=== PATIENT | female | born 1985 | race Caucasian/White ===

== ENCOUNTER 2017-03-16 10:50 | Inpatient (IN) | payer MEDICAID ==
[~2017-03-16] VITALS: Ht 160 cm; Wt 76.3 kg
[2017-03-16] MEDS ORDERED: PREN-93 PO (11:09)
[2017-03-16 11:10] VITALS: BP 118/77; PULSE 83; RESP 18; Ht 160 cm; Wt 76.3 kg
--- NOTE | 2017-03-16 12:55 | PREOPHP ---
DATE OF ADMISSION: 03/16/2017 HISTORY OF PRESENT ILLNESS: Ms. Christina Lara is a 31-year-old 1, para 0, EDC 03/23/2017, in trauterine at 39 weeks gestational age, presented to triage complaining of vaginal dischar ge. Her care took place at [facility]. She denies any vaginal bleeding. Sh e denies any contractions, nausea, vomiting, shortness of breath, or visual changes. PAST MEDICAL HISTORY: None. MEDICATIONS: vitamins. PAST SURGICAL HISTORY: None. OBSTETRIC HISTORY: Primigravid. GYNECOLOGIC HISTORY: 11, regular 3 to 4 days. Denies any sexually transmitted diseases. Sexually active with 1 partner. SOCIAL HISTORY: Denies any smoking, drugs or alcohol. FAMILY HISTORY: None. REVIEW OF SYSTEMS: All within normal except history of present illness. PHYSICAL EXAMINATION: HEENT: Within normal. LUNGS: CTA bilateral. CARDIOVASCULAR: S1, S2, regular rhythm. ABDOMEN: Gravid, nontender. Negative CVA bilateral. EXTREMITIES: Negative. No calf tenderness. VAGINAL EXAMINATION: Long, closed. No pooling, positive white cottage cheese discharge, suspected with candidiasis. heart tracing category 1, toco irregular contractions. ASSESSMENT: A 31-year-old 1, para 0, intrauterine at 39 weeks gestational age, ru le out rupture of membranes. PLAN: A biophysical profile with MARINE. ROM plus test. Consider admission if findings are positive for rupture of membrane. Dictated By: TYSON SILVESTRE/DAGO Conf#: [id number] DID#: [id number]
--- NOTE | 2017-03-16 15:23 | RADRPT ---
PROCEDURE: US biophysical profile. CLINICAL INDICATION: Ruptured membranes. TECHNIQUE: Multiple sonographic images of the uterus were obtained. The images were revi ewed on a PACS workstation. COMPARISON: No prior studies are available for comparison. FINDINGS: There is a single live intrauterine gestation. heart rate is 137 beats per minute. The position is cephalic. The placenta is posterior grade II with no abruption or previa. The MARINE is 14.2 cm. (Normal = 5-20 cm.) Breathing Movement: 2 Gross Body Movement: 2 Tone: 2 Qualitative Amniotic Fluid Volume: 2 TOTAL: 8 IMPRESSION: 1. The biophysical score is 8/8. RPTAT: QQ .Diego Erickson MD, Date Time Electronically viewed and signed by .Deigo Erickson MD, on 03/16/2017 15:22 .R/
[2017-03-16] MEDS ORDERED: LIDOCAINE 1% (MPF) 30 ML INJ INJ PRN (15:30)
[2017-03-16] MEDS ORDERED: MISOPROSTOL 200 MCG TAB PR PRN (15:30)
[2017-03-16] MEDS ORDERED: OXYTOCIN 30 UNITS/LR 500 ML IV PRN (15:30)
[2017-03-16] MEDS ORDERED: BUTORPHANOL 2 MG INJ IV PRN ×2 (15:30)
[2017-03-16] MEDS ORDERED: OXYTOCIN 30 UNITS/LR 500 ML IV SCH ×2 (15:30)
[2017-03-16] MEDS ORDERED: METHYLERGONOVINE 0.2 MG INJ IM PRN (15:30)
[2017-03-16] MEDS ORDERED: CARBOPROST 250 MCG INJ IM PRN (15:30)
[2017-03-16] MEDS ORDERED: LACTATED RINGER'S 1,000 ML IV PRN (15:30)
[2017-03-16] MEDS: LACTATED RINGER'S 1,000 ML IV SCH ×2 (15:34→19:50)
[2017-03-16 15:35] LABS: BASOPHILS % 0.3 % (0.0-2.0); EOSINOPHILS % 0.3 % (0.0-7.0); HEMATOCRIT 34.7 % (37.0-47.0); LYMPHOCYTES # 1.5 10^3/ul (0.8-2.9); LYMPHOCYTES % 14.6 % (15.0-51.0); MEAN CORPUSCULAR HEMOGLOBIN 32.3 pg (29.0-33.0); MEAN CORPUSCULAR HGB CONC 34.6 g/dl (32.0-37.0); MEAN CORPUSCULAR VOLUME 93.3 fl (82.0-101.0); MEAN PLATELET VOLUME 12.5 fl (7.4-10.4); MONOCYTE # 0.5 10^3/ul (0.3-0.9); MONOCYTES % 4.6 % (0.0-11.0); NEUTROPHIL # 8.3 10^3/ul (1.6-7.5); NEUTROPHILS % 79.9 % (39.0-77.0); PLATELET COUNT 210 10^3/UL (140-415); RED BLOOD COUNT 3.72 10^6/ul (4.20-5.40); RED CELL DISTRIBUTION WIDTH 13.2 % (11.5-14.5); WHITE BLOOD COUNT 10.4 10^3/ul (4.8-10.8)
--- NOTE | 2017-03-16 15:36 | RADRPT ---
PROCEDURE: US OB. CLINICAL INDICATION: Ruptured membranes. TECHNIQUE: Multiple sonographic images of the uterus were obtained. The images were revi ewed on a PACS workstation. COMPARISON: No prior studies are available for comparison. FINDINGS: There is a single live intrauterine gestation. heart rate is 139 beats per minute. Measurements were made in order to determine age. The results are as follows: BPD = 8.41 cm. HC = 31.90 cm. AC = 34.13 cm. FL = 7.51 cm. Estimated weight is 3186 +/- 478 grams. LMP growth percentile is 28 %. Menstrual age by ultrasound dates is 36 weeks 4 days. The estimated date of delivery is 04/09/2017. Position is cephalic and placenta is posterior grade II. There is no evidence for an abruption or pl acenta previa. IMPRESSION: 1. Single live intrauterine gestation of 36 weeks 4 days menstrual age by ultrasound dates. 2. The estimated date of delivery is 03/30/2017. RPTAT: QQ .Diego Erickson MD, Date Time Electronically viewed and signed by .Diego Erickson MD, on 03/16/2017 15:36 .R/
[2017-03-16 15:52] LABS: INR 0.8; PROTIME 11.1 Sec (12.2-14.2); PT RATIO 0.9
[2017-03-16 15:53] LABS: PARTIAL THROMBOPLASTIN TIME 29.2 Sec (25.0-35.0)
[2017-03-16] MEDS: MISOPROSTOL 25 MCG CAPSULE PO SCH ×2 (17:00→21:00)
[2017-03-17] MEDS: MISOPROSTOL 25 MCG CAPSULE PO SCH (01:00)
[2017-03-17] MEDS: LACTATED RINGER'S 1,000 ML IV SCH ×3 (03:37→20:42)
[2017-03-17] MEDS ORDERED: DINOPROSTONE 10 MG VAG SUPP VAG ONE (16:00)
--- NOTE | 2017-03-17 19:47 | QN ---
Documentation Comment Patient was seen and evaluated in labor and delivery Contra complains of contraction pains Vital signs stable afebrile Abdomen gravid nontender negative CVA bilateral Extremity negative edema no calf tenderness Vaginal exam 2/40/-3 intact heart tracing category 1 [place] regular contractions Assessment interim at 39 weeks gestational age admitted for induction secondary to occasional variable decelerations observed in triage Patient is currently on Cervidil for cervical ripening Plan continue present management Epidural for pain management TYSON OJEDA MD Mar 17, 2017 19:47
[2017-03-17] MEDS ORDERED: FENTAnyl 2MCG/ML-ROPIV 0.2% 100 ML ONE (23:41)
[2017-03-18] MEDS ORDERED: OXYTOCIN 30 UNITS/LR 500 ML IV SCH (01:00)
[2017-03-18] MEDS: LACTATED RINGER'S 1,000 ML IV SCH ×2 (01:08→04:00)
[2017-03-18] MEDS ORDERED: FENTAnyl 2MCG/ML-ROPIV 0.2% 100 ML BAG EPI SCH (02:00)
[2017-03-18] MEDS ORDERED: NALOXONE (0.4 MG/ML) INJ IV PRN (02:00)
[2017-03-18] MEDS: DEXTROSE 5%-LR 1,000 ML IV SCH ×2 (04:00→07:49)
[2017-03-18] MEDS ORDERED: MINERAL OIL LIGHT 10 ML VIAL TOP ONE (07:30)
--- NOTE | 2017-03-18 09:18 | QN ---
Documentation Comment requested by her OB for ARM and insertion of IUPC VE c/100/-2 membrane buldging ruptured light old mec with large amount internal lead inserted BEN JERONIMO MD Mar 18, 2017 09:18
--- NOTE | 2017-03-18 09:23 | LDN ---
Date/Time of Note Date/Time of Note DATE: 03/18/17 TIME: 09:21 Delivery Summary Vacuum-assisted vaginal delivery secondary to maternal exhaustion and distress at +3 station applied for 5 seconds with no complications Weeks of Gestation 39 Assisted Vaginal Delivery: Vacuum Placenta Delivered: Spontaneously Meconium: Light Episiotomy: Yes Laceration repair: rmle repain with 2-0 and 3-0 chromic Anesthesia type: Epidural Sponge & Needle done & correct: Yes All needle counts correct: Yes Any foreign bodies felt in the: No Problems: Delivery Information Sex Infant Sex: female Apgars 1 Minute: 8 5 Minute: 9 Suctioning Nose & mouth suctioned at laura: No Delee suction performed: No Umbilical Cord Umbilical cord with: 3 Vessels Cord presentations: nuchal cord Nuchal cord present X: 1 Cord Blood was obtained: Yes TYSON OJEDA MD Mar 18, 2017 09:23
[2017-03-18] MEDS ORDERED: ONDANSETRON 4 MG INJ IV PRN (09:30)
[2017-03-18] MEDS ORDERED: CARBOPROST 250 MCG INJ IM PRN (09:30)
[2017-03-18] MEDS ORDERED: OXYTOCIN 30 UNITS/LR 500 ML IV PRN (09:30)
[2017-03-18] MEDS ORDERED: DIBUCAINE 1% 30 GM OINT TOP PRN (09:30)
[2017-03-18] MEDS ORDERED: MISOPROSTOL 200 MCG TAB PR PRN (09:30)
[2017-03-18] MEDS ORDERED: METHYLERGONOVINE 0.2 MG INJ IM PRN (09:30)
[2017-03-18] MEDS: OXYCODONE/ASPIRIN (4.88/325) TAB PO PRN (10:38)
[2017-03-18 11:45] VITALS: BP 126/72; PULSE 72; RESP 14
[2017-03-18] MEDS: IBUPROFEN 600 MG TAB PO SCH ×2 (12:37→18:05)
[2017-03-18] MEDS: WITCH HAZEL/GLYCERIN PAD PR PRN (12:38)
[2017-03-18] MEDS: LANOLIN 7 GM TUBE TOP PRN (12:40)
[2017-03-18] MEDS: BENZOCAINE 20% 56 ML SPRAY TOP PRN (12:42)
[2017-03-18 12:44] VITALS: BP 111/69; PULSE 75; RESP 16
[2017-03-18] MEDS: LACTATED RINGER'S 1,000 ML IV* SCH (14:15)
[2017-03-18 16:12] VITALS: BP 102/63; PULSE 83; RESP 18
[2017-03-18 20:00] VITALS: BP 110/66; PULSE 87; RESP 18
[2017-03-19] MEDS: LACTATED RINGER'S 1,000 ML IV SCH ×2 (04:00→07:06)
[2017-03-19] MEDS: DEXTROSE 5%-LR 1,000 ML IV SCH ×2 (04:00→07:15)
[2017-03-19] MEDS: LACTATED RINGER'S 1,000 ML IV* SCH ×2 (04:00→09:24)
[2017-03-19 04:45] VITALS: BP 110/71; PULSE 107; RESP 19
[2017-03-19] MEDS: IBUPROFEN 600 MG TAB PO SCH ×4 (05:15→17:19)
[2017-03-19] MEDS: OXYCODONE/ASPIRIN (4.88/325) TAB PO PRN ×2 (05:32→20:23)
[2017-03-19 08:00] VITALS: BP 105/71; PULSE 83; RESP 17
[2017-03-19 08:42] LABS: BASOPHILS % 0.1 % (0.0-2.0); EOSINOPHILS % 0.2 % (0.0-7.0); HEMATOCRIT 22.8 % (37.0-47.0); HEMOGLOBIN 7.6 g/dl (12.0-16.0); LYMPHOCYTES # 1.2 10^3/ul (0.8-2.9); LYMPHOCYTES % 8.5 % (15.0-51.0); MEAN CORPUSCULAR HEMOGLOBIN 31.9 pg (29.0-33.0); MEAN CORPUSCULAR HGB CONC 33.3 g/dl (32.0-37.0); MEAN CORPUSCULAR VOLUME 95.8 fl (82.0-101.0); MEAN PLATELET VOLUME 12.5 fl (7.4-10.4); MONOCYTE # 0.6 10^3/ul (0.3-0.9); MONOCYTES % 4.5 % (0.0-11.0); NEUTROPHIL # 11.9 10^3/ul (1.6-7.5); NEUTROPHILS % 86.2 % (39.0-77.0); PLATELET COUNT 134 10^3/UL (140-415); RED BLOOD COUNT 2.38 10^6/ul (4.20-5.40); RED CELL DISTRIBUTION WIDTH 13.3 % (11.5-14.5); WHITE BLOOD COUNT 13.8 10^3/ul (4.8-10.8)
[2017-03-19 16:00] VITALS: BP 125/73; PULSE 93; RESP 16
[2017-03-19 20:00] VITALS: BP 113/71; PULSE 98; RESP 19
[2017-03-19] MEDS: LANOLIN 7 GM TUBE TOP PRN (20:22)
[2017-03-20] MEDS: IBUPROFEN 600 MG TAB PO SCH ×3 (00:08→12:26)
[2017-03-20 04:00] VITALS: BP 103/65; PULSE 94; RESP 19
[2017-03-20 08:00] VITALS: BP 118/67; PULSE 92; RESP 17
[2017-03-20 12:22] LABS: BASOPHILS % 0.1 % (0.0-2.0); EOSINOPHILS # 0.1 10^3/ul (0.0-0.5); EOSINOPHILS % 0.5 % (0.0-7.0); HEMATOCRIT 23.4 % (37.0-47.0); HEMOGLOBIN 7.9 g/dl (12.0-16.0); LYMPHOCYTES # 1.2 10^3/ul (0.8-2.9); LYMPHOCYTES % 7.8 % (15.0-51.0); MEAN CORPUSCULAR HEMOGLOBIN 32.4 pg (29.0-33.0); MEAN CORPUSCULAR HGB CONC 33.8 g/dl (32.0-37.0); MEAN CORPUSCULAR VOLUME 95.9 fl (82.0-101.0); MEAN PLATELET VOLUME 11.9 fl (7.4-10.4); MONOCYTE # 0.6 10^3/ul (0.3-0.9); MONOCYTES % 4.2 % (0.0-11.0); NEUTROPHIL # 12.8 10^3/ul (1.6-7.5); NEUTROPHILS % 86.7 % (39.0-77.0); PLATELET COUNT 164 10^3/UL (140-415); RED BLOOD COUNT 2.44 10^6/ul (4.20-5.40); RED CELL DISTRIBUTION WIDTH 13.2 % (11.5-14.5); WHITE BLOOD COUNT 14.7 10^3/ul (4.8-10.8)
--- NOTE | 2017-03-20 13:36 | PD.PPDC ---
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
--- NOTE | 2017-03-20 13:37 | DS ---
Date/Time of Note Date/Time of Note DATE: 03/20/17 TIME: 13:37 Obstetrical Discharge Record Final Diagnosis Final Diagnosis: Term delivered Other Final Diagnosis anemia-stable Vaginal Delivery Obstetrical Delivery: Spontaneous Condition on Discharge Physical Assessment Voiding: Yes Bowel Movement: Yes Breast: Soft, non-tender Fundus: Firm Calf Tenderness: No Patient Condition: Stable XIANG MOONEY MD Mar 20, 2017 13:37
[2017-03-20 16:00] VITALS: BP 133/74; PULSE 100; RESP 16
[2017-03-20] MEDS: WITCH HAZEL/GLYCERIN PAD PR PRN (16:15)
[2017-03-20] MEDS: OXYCODONE/ASPIRIN (4.88/325) TAB PO PRN (16:15)
[2017-03-20] MEDS: BENZOCAINE 20% 56 ML SPRAY TOP PRN (16:16)
[2017-03-21 08:44] LABS: CBV Base Excess -6.3 mmol/L; CBV COHb 1.7 %; CBV Oxygen Sat 79.3 mmHG; CBV Total Hemglobin 15.2 g/dl; Cord Blood Venous AADO2 67.6 mmHg; Fraction OxyHgb Cord Venous 77.2 %; MODE ROOM AIR; Sample Type CBV
== END 2017-03-20 17:18 | disposition home or self-care (01) | DRG 775 ==
LOC: OBT 10:50 → L-D 10:50 → OBT 14:25 → L-D 03-18 01:46 → PP1 03-18 11:17
PROVIDERS: ADMIT Obstetrics & Gynecology; ATTEND Obstetrics & Gynecology
PROC: 10D07Z6 Extraction of Products of Conception, Vacuum, Via Natural or Artificial Opening (ICD-10-PCS; principal; 2017-03-18)
PROC: 0HQ9XZZ Repair Perineum Skin, External Approach (ICD-10-PCS; 2017-03-18)
DX: O69.81X0 Labor and delivery complicated by cord around neck, without compression, not applicable or unspecified (principal); O71.89 Other specified obstetric trauma; Z3A.39 39 weeks gestation of pregnancy; Z37.0 Single live birth
CPT/HCPCS: 36415; 62319; 76815; 76818; 82803; 84112; 85025; 85610; 85730; 86592; 86900; 86901; 87340; 99464; G0463; J2210; J2590; J3010; J7120; J7121